=== PATIENT | male | born 2000 | race Caucasian/White ===

== ENCOUNTER 2024-07-07 19:09 | Emergency (ER) | payer BC, SELFPAY ==
[2024-07-07 19:12] VITALS: BP 143/85; PULSE 107; RESP 17; TEMP 36.8; O2SAT 100
--- NOTE | 2024-07-07 19:42 | ED.GENADULT ---
HPI - General Adult General Chief complaint: Upper Respiratory Infection Stated complaint: cold symptoms Time Seen by Provider: 07/07/24 19:16 History of Present Illness HPI narrative: 23-year-old male with a history of ADHD presenting to the emergency room with a constellation of complaints including subjective low-grade fevers, headaches, nauseousness, abdominal cramping and diarrhea for last 2 weeks. Patient states the symptoms are intermittent in nature and sometimes get debilitating where he has to use the restroom multiple times throughout the day. No history of inflammatory bowel disease or IBS. No family history that he is aware of. He otherwise has been in his normal state of health but these last 10 days have been symptomatic for him. Endorses liquidy diarrhea with mucus but no blood or melena. Endorses nauseousness without vomiting. Headache goes away after use the restroom. Endorses abdominal cramping in his bilateral lower quadrants. No urinary complaints, testicular complaints swelling. No trauma. No new medications. Related Data Allergies Allergy/AdvReac Type Severity Reaction Status Date / Time No Known Allergies Allergy Verified 07/07/24 19:14 Review of Systems Review of Systems: As reviewed above Exam Narrative: GENERAL: [Well-appearing, well-nourished, and in no acute distress.] HEAD: [Normocephalic, atraumatic.] EYES: [PERRLA and EOMI.] ENT: Nares clear, no rhinorrhea or epistaxis. Mucous membranes moist. NECK: Supple. CHEST: [Clear to auscultation. No respiratory distress.] HEART: [Regular rate and rhythm]. No murmur heard. [Normal peripheral pulses.] ABDOMEN: [Soft, nondistended], [nontender], [No rigidity or guarding] EXTREMITIES: Normal range of motion. [No edema.] SKIN: Warm, dry, no rash. NEURO: [No focal deficits]. Alert and oriented [x3.] PSYCH: [Normal mood and affect.] Course Vital Signs Vital signs: Vital Signs Temperature 36.8 C 07/07/24 19:12 Pulse Rate 107 H 07/07/24 19:12 Respiratory Rate 17 07/07/24 19:12 Blood Pressure 143/85 H 07/07/24 19:12 Pulse Oximetry 100 07/07/24 19:12 Oxygen Delivery Room Air 07/07/24 19:12 Temperature 36.8 C 07/07/24 19:12 Pulse Rate 107 H 07/07/24 19:12 Respiratory Rate 17 07/07/24 19:12 Blood Pressure 143/85 H 07/07/24 19:12 Pulse Oximetry 100 07/07/24 19:12 Oxygen Delivery Room Air 07/07/24 19:12 Medical Decision Making MDM Narrative Medical decision making narrative: 23-year-old otherwise well-appearing male presenting to the emergency room with a constellation of complaints that usually focuses on diarrhea with mucus production, nauseous without vomiting and some lower abdominal cramping. Symptoms were going on for last 10 days but states that he has had some symptoms like this previously that was self-limited and resolved. Endorses low-grade fevers, myalgias. No sick contacts but states that he does not seek medical attention regularly. He has a benign abdominal examination, benign appearance and otherwise appears well not any acute distress. Differential remains broad and they would likely nonspecific gastroenteritis versus viral illness. COVID fluid RSV swabs were obtained. Laboratory studies were obtained including CBC CMP lipase and magnesium. Patient appears clinically well hydrated, not in any acute distress and has no pain on my initial assessment. Other differentials to consider include IBS, inflammatory bowel disease, less likely pathology such as a pancreatitis or appendicitis, cholelithiasis, cholecystitis. Workup reveals no leukocytosis or anemia. Electrolytes all within normal limits, normal renal and hepatic function panel. Normal glucose. Negative COVID fluid influenza swabs. At this time patient is stable for discharge with outpatient follow-up. Will refer him to Medicine for primary care provider establishment And further workup. Medical Records Medical records reviewed: Yes I reviewed the external patient's medical records. Vital Signs Vital Signs: Vital Signs Temperature 36.8 C 07/07/24 19:12 Pulse Rate 107 H 07/07/24 19:12 Respiratory Rate 17 07/07/24 19:12 Blood Pressure 143/85 H 07/07/24 19:12 Pulse Oximetry 100 07/07/24 19:12 Oxygen Delivery Room Air 07/07/24 19:12 Temperature 36.8 C 07/07/24 19:12 Pulse Rate 107 H 07/07/24 19:12 Respiratory Rate 17 07/07/24 19:12 Blood Pressure 143/85 H 07/07/24 19:12 Pulse Oximetry 100 07/07/24 19:12 Oxygen Delivery Room Air 07/07/24 19:12 Lab Data Lab results reviewed: Yes I reviewed the patient's lab results. 07/07/24 20:00 07/07/24 20:00 Labs: Lab Results 07/07/24 07/07/24 Range/Units 19:28 20:00 WBC 10.0 (4.5-10.0) K/mm3 RBC 5.03 (4.6-6.20) M/mm3 Hgb 15.4 (14.0-18.0) g/dL Hct 44.4 (42.0-52.0) % MCV 88.3 (80-100) fl MCH 30.6 (26-34) pg MCHC 34.7 (32-36) g/dl RDW 12.8 (11.5-14.5) % Plt Count 281 (150-375) k/mm3 MPV 9.9 (7.4-10.4) fl Immature Gran % (Auto) 0.3 (0-0.5) % Neut % (Auto) 58.1 (45.5-73.1) % Lymph % (Auto) 30.3 (18.3-44.2) % [place] % (Auto) 9.2 H (2.6-8.5) % Eos % (Auto) 1.7 (0-4.4) % Baso % (Auto) 0.4 (0.2-1.2) % Lymph # (Auto) 3.04 (0.9-3.2) K/mm3 [place] # (Auto) 0.9 H (0.1-0.6) K/mm3 Eos # (Auto) 0.2 (0-0.3) K/mm3 Baso # (Auto) 0.0 (0.0-0.1) K/mm3 Abs Immat Gran (auto) 0.03 (0.00-0.031) K/mm3 Absolute Neuts (auto) 5.8 (1.3-6.7) K/mm3 Absolute Nucleated RBC 0.000 (0.0-0.012) K/mm3 Nucleated RBC % 0.0 (0.0-0.2) % Sodium 139 (137-145) mmol/L Potassium 3.8 (3.4-5.0) mmol/L Chloride 103 (98-107) mmol/L Carbon Dioxide 26 (22-30) mmol/L Anion Gap 10 (4-12) mmol/L BUN 13 (9-20) mg/dL Creatinine 0.90 (0.7-1.3) mg/dL Estim Creat Clear Calc 103 ml/min Estimated GFR > 60 (59 - ) Glucose 107 (65-110) mg/dL Calcium 9.5 (8.4-10.2) mg/dL Magnesium 2.1 (1.6-2.3) mg/dL Total Bilirubin 0.3 (0.2-1.3) mg/dL AST 24 (17-59) U/L ALT 16 (6-50) U/L Alkaline Phosphatase 51 (38-126) U/L Total Protein 8.0 (6.3-8.2) g/dL Albumin 4.8 (3.5-5.1) g/dL Lipase 50 (23-300) U/L Influenza A (RT-PCR) Negative (Negative) Influenza B (RT-PCR) Negative (Negative) RSV (RT-PCR) Negative (Negative) SARS-CoV-2 RNA (RT-PCR) Negative (Negative) Discharge Plan Discharge Clinical Impression: Acute viral syndrome, IBS (irritable bowel syndrome) Patient Disposition: Home, Self-Care Condition: Stable Instructions: Antibiotic Form, Irritable Bowel Syndrome (DC), Acute Nausea and Vomiting (DC) Additional Instructions: your workup was largely unremarkable. Your symptoms do sound like they could be viral syndrome versus irritable bowel syndrome. We have prescribed you several medications to try to help with this. Follow-up with your primary care provider which we have sent you referral to establish care with. Prescriptions: New dicyclomine 20 mg tablet 20 mg PO TID PRN (Reason: abdominal pain) Qty: 20 0RF ondansetron 4 mg tablet,disintegrating 4 mg PO Q8H PRN (Reason: nausea and vomiting) Qty: 10 0RF Follow-up/Referrals: Ruthie Fuller DO [Physician] - 1 Week ( Establish care) PHYSICIAN,WATER QUALITY TESTER [Primary Care Provider] - Stand Alone Forms: Work/School Release IP Time of Disposition: 20:47
[2024-07-07 20:06] LABS: Basophils Percent Auto 0.4 % (0.2-1.2); Eosinophils Absolute Auto 0.2 K/mm3 (0-0.3); Eosinophils Percent Auto 1.7 % (0-4.4); Hematocrit 44.4 % (42.0-52.0); Hemoglobin 15.4 g/dL (14.0-18.0); Immature Granulocyte Absolute 0.03 K/mm3 (0.00-0.031); Immature Granulocyte Percent A 0.3 % (0-0.5); Lymphocytes Absolute Auto 3.04 K/mm3 (0.9-3.2); Lymphocytes Percent Auto 30.3 % (18.3-44.2); Mean Corpuscular HGB Conc 34.7 g/dl (32-36); Mean Corpuscular Hemoglobin 30.6 pg (26-34); Mean Corpuscular Volume 88.3 fl (80-100); Mean Platelet Volume 9.9 fl (7.4-10.4); Monocytes Absolute Auto 0.9 K/mm3 (0.1-0.6); Monocytes Percent Auto 9.2 % (2.6-8.5); Neutrophils Absolute Auto 5.8 K/mm3 (1.3-6.7); Neutrophils Percent Auto 58.1 % (45.5-73.1); Platelet Count Result 281 k/mm3 (150-375); Red Blood Count 5.03 M/mm3 (4.6-6.20); Red Cell Distribution Width 12.8 % (11.5-14.5)
[2024-07-07 20:11] LABS: Influenza A QL RT-PCR Negative (Negative); Influenza B QL RT-PCR Negative (Negative); RSV RNA, RT-PCR Negative (Negative); SARS-CoV-2 RNA PCR Negative (Negative)
[2024-07-07 20:17] LABS: Alanine Aminotransferase 16 U/L (6-50); Albumin Level 4.8 g/dL (3.5-5.1); Alkaline Phosphatase 51 U/L (38-126); Anion Gap 10 mmol/L (4-12); Aspartate Amino Transferase 24 U/L (17-59); Bilirubin,Total 0.3 mg/dL (0.2-1.3); Blood Urea Nitrogen 13 mg/dL (9-20); Calcium 9.5 mg/dL (8.4-10.2); Carbon Dioxide 26 mmol/L (22-30); Chloride 103 mmol/L (98-107); Estimated CRCL calculation 103 ml/min; Estimated Glomerular Filt Rate > 60; Glucose 107 mg/dL (65-110); Lipase 50 U/L (23-300); Magnesium 2.1 mg/dL (1.6-2.3); Potassium 3.8 mmol/L (3.4-5.0); Sodium 139 mmol/L (137-145)
[2024-07-07 21:18] VITALS: BP 123/77; PULSE 91; RESP 16; O2SAT 97
== END 2024-07-07 21:22 | disposition home or self-care (01) ==
PROVIDERS: Emergency Provider Student in an Organized Health Care Education/Training Program
DX: B34.9 Viral infection, unspecified (principal); K58.9 Irritable bowel syndrome, unspecified
CPT/HCPCS: 36415; 80053; 83690; 83735; 85025; 87637; 99283

== ENCOUNTER 2024-07-22 17:19 | Emergency (ER) | payer BC, SELFPAY ==
[2024-07-22 17:27] VITALS: BP 140/74; PULSE 101; RESP 18; TEMP 36.5; O2SAT 100
--- NOTE | 2024-07-22 17:32 | PC.NURSE ---
decided after triage he wanted to leave. He reported he did not want to have any testing done only wanted a work noted
== END 2024-07-22 17:51 | disposition left against medical advice (07) ==
LOC: ANHED 17:39
DX: R19.7 Diarrhea, unspecified (principal)
CPT/HCPCS: 99199

== ENCOUNTER 2024-08-20 13:00 | Emergency (ER) | payer BC, SELFPAY ==
--- NOTE | ~2024-08-20 | XR_ITS ---
EXAMINATION: XR chest 2V Exam Date/Time: 08/20/2024 18:12 NEWSPAPER ILLUSTRATOR HISTORY: cough, fever Comparison: None. RESULT: Lines, tubes, and devices: None. Lungs and pleura: Clear. Cardiomediastinal silhouette: Normal. Other: No acute osseous or upper abdominal finding. IMPRESSION: No acute cardiopulmonary process. Reviewed, dictated and finalized at location K. PAPER ILLUSTRATOR
[2024-08-20 13:07] VITALS: BP 142/90; PULSE 108; RESP 18; TEMP 36.7; O2SAT 99
[2024-08-20 14:28] LABS: Basophils Percent Auto 0.3 % (0.2-1.2); Eosinophils Percent Auto 0.3 % (0-4.4); Hematocrit 48.3 % (42.0-52.0); Hemoglobin 16.6 g/dL (14.0-18.0); Immature Granulocyte Percent A 0.3 % (0-0.5); Lymphocytes Percent Auto 24.8 % (18.3-44.2); Mean Corpuscular HGB Conc 34.4 g/dl (32-36); Mean Corpuscular Volume 87.3 fl (80-100); Mean Platelet Volume 9.8 fl (7.4-10.4); Monocytes Percent Auto 10.6 % (2.6-8.5); Neutrophils Percent Auto 63.7 % (45.5-73.1); Platelet Count Result 307 k/mm3 (150-375); Red Blood Count 5.53 M/mm3 (4.6-6.20); Red Cell Distribution Width 12.8 % (11.5-14.5); White Blood Count 13.1 K/mm3 (4.5-10.0)
[2024-08-20 14:29] LABS: Immature Granulocyte Absolute 0.04 K/mm3 (0.00-0.031); Lymphocytes Absolute Auto 3.24 K/mm3 (0.9-3.2); Monocytes Absolute Auto 1.4 K/mm3 (0.1-0.6); Neutrophils Absolute Auto 8.3 K/mm3 (1.3-6.7)
[2024-08-20 14:41] LABS: Alanine Aminotransferase 22 U/L (6-50); Albumin Level 5.3 g/dL (3.5-5.1); Alkaline Phosphatase 59 U/L (38-126); Anion Gap 10 mmol/L (4-12); Aspartate Amino Transferase 28 U/L (17-59); Bilirubin,Total 0.8 mg/dL (0.2-1.3); Blood Urea Nitrogen 17 mg/dL (9-20); Calcium 9.8 mg/dL (8.4-10.2); Carbon Dioxide 26 mmol/L (22-30); Chloride 103 mmol/L (98-107); Estimated CRCL calculation 102 ml/min; Estimated Glomerular Filt Rate > 60; Glucose 114 mg/dL (65-110); Lipase 43 U/L (23-300); Potassium 3.5 mmol/L (3.4-5.0); Sodium 139 mmol/L (137-145)
[2024-08-20 15:56] LABS: Influenza A QL RT-PCR Negative (Negative); Influenza B QL RT-PCR Negative (Negative); RSV RNA, RT-PCR Negative (Negative); SARS-CoV-2 RNA PCR Negative (Negative)
[2024-08-20 16:27] LABS: Add Urine Microscopic? YES; Appearance Urine Clear (Clear); Bacteria Urine None Seen /hpf; Bilirubin Urine Negative (Negative); Blood Urine Negative (Negative); Color Urine Dark Yellow (Yellow); Glucose Urine UA Negative (Negative); Ketones Urine 1+ mg/dL (Negative); Leukocyte Esterase Ur Trace LEU/UL (Negative); Nitrate Urine Negative (Negative); Protein Urine 1+ mg/dL (Negative); RBC Urine 0-2 /hpf (0-2); Specific Grav Ur 1.034 (1.001-1.035); Squamous Epithelial Cell Urine None Seen /hpf (Few); WBC Urine 0-5 /hpf (0-3); pH Urine 6.5 (5.0-9.0)
[2024-08-20 17:47] VITALS: BP 148/79; PULSE 98; RESP 18; O2SAT 100
--- NOTE | 2024-08-20 17:49 | PC.NURSE ---
pt requested his IV be pulled out due to it bothering him. pt was worked up and agitated. this RN pulled his IV out
--- NOTE | 2024-08-20 18:14 | ED_ITS ---
HPI - General Adult General Chief complaint: Unspecified Stated complaint: flu like s/s Time Seen by Provider: 08/20/24 17:12 Source: patient Mode of arrival: ambulatory Limitations: no limitations History of Present Illness HPI narrative: This is a 24-year-old male that presents to the emergency department for cold symptoms present since yesterday. Reports nausea, vomiting, fevers, cough. Reports he thought he has also dark streaks in his vomit was concerned it was blood. He is not take any blood thinners. Denies shortness of breath, abdominal pain, diarrhea. Related Data Allergies Allergy/AdvReac Type Severity Reaction Status Date / Time No Known Allergies Allergy Verified 07/22/24 17:21 Review of Systems Review of Systems: CONSTITUTIONAL: Reports fever ENT: Reports congestion CARDIOVASCULAR: Denies chest pain RESPIRATORY: Reports cough. Denies dyspnea. GASTROINTESTINAL: Denies abdominal pain or diarrhea. Reports nausea, vomiting All systems reviewed & are unremarkable except as noted in HPI and below PMFSH Past Medical History Medical History (Updated 08/20/24 @ 18:57 by Tricia Benítez PA-C) History of ADHD History of IBS Social History Social History (Updated 08/20/24 @ 18:16 by Tricia Benítez PA-C) Smoking status: Never smoker Exam Narrative: GENERAL: Well-appearing, well-nourished, and in no acute distress. HEAD: Normocephalic, atraumatic. EYES: EOMI. ENT: Nares clear, no rhinorrhea or epistaxis. Mucous membranes moist. Oropharynx without tonsillar hypertrophy exudate or other lesions. Bilateral TMs pearly moore non-bulging NECK: Supple. No adenopathy or masses. CHEST: Clear to auscultation. No respiratory distress. No wheezes rales or rhonchi HEART: Regular rate and rhythm. No murmur heard. Normal peripheral pulses. ABDOMEN: Soft, nondistended EXTREMITIES: Normal range of motion. No edema. SKIN: Warm, dry, no rash. NEURO: No focal deficits. Alert and oriented x3. PSYCH: Normal mood and affect Course Course Emergency Course: Patient updated on his workup and agrees with plan of care Vital Signs Vital signs: Vital Signs Temperature 98.1 F 08/20/24 13:07 Pulse Rate 108 H 08/20/24 13:07 Respiratory Rate 18 08/20/24 13:07 Blood Pressure 142/90 H 08/20/24 13:07 Pulse Oximetry 99 08/20/24 13:07 Oxygen Delivery Room Air 08/20/24 13:07 Temperature 98.1 F 08/20/24 13:07 Pulse Rate 98 08/20/24 17:47 Respiratory Rate 18 08/20/24 17:47 Blood Pressure 148/79 H 08/20/24 17:47 Pulse Oximetry 100 08/20/24 17:47 Oxygen Delivery Room Air 08/20/24 13:07 Medical Decision Making MDM Narrative Medical decision making narrative: Patient presents to the emergency department for symptoms ongoing since yesterday. Reporting fevers, cough, nausea,. He is afebrile in the ER nontoxic appearing. Mildly tachycardic upon arrival, this normalized without intervention. CBC with leukocytosis to 13.1. Metabolic panel and lipase without concerning findings. Urine without evidence of infection. Influenza, RSV and COVID screens are negative. Chest x-ray without acute cardiopulmonary abnormality. Patient has had no episodes of vomiting while in the ER. Updated on his workup and agrees with plan of care. He is to follow up with primary provider. He was given warnings to return to the ER Differential Diagnosis Differential Diagnosis: Gastroenteritis, upper respiratory infection, COVID, influenza, gastritis, Karoline-Harrison tear Vital Signs Vital Signs: Vital Signs Temperature 98.1 F 08/20/24 13:07 Pulse Rate 108 H 08/20/24 13:07 Respiratory Rate 18 08/20/24 13:07 Blood Pressure 142/90 H 08/20/24 13:07 Pulse Oximetry 99 08/20/24 13:07 Oxygen Delivery Room Air 08/20/24 13:07 Temperature 98.1 F 08/20/24 13:07 Pulse Rate 98 08/20/24 17:47 Respiratory Rate 18 08/20/24 17:47 Blood Pressure 148/79 H 08/20/24 17:47 Pulse Oximetry 100 08/20/24 17:47 Oxygen Delivery Room Air 08/20/24 13:07 Lab Data Lab results reviewed: Yes I reviewed the patient's lab results. 08/20/24 14:21 08/20/24 14:21 Labs: Lab Results 08/20/24 08/20/24 Range/Units 14:21 16:07 WBC 13.1 H (4.5-10.0) K/mm3 RBC 5.53 (4.6-6.20) M/mm3 Hgb 16.6 (14.0-18.0) g/dL Hct 48.3 (42.0-52.0) % MCV 87.3 (80-100) fl MCH 30.0 (26-34) pg MCHC 34.4 (32-36) g/dl RDW 12.8 (11.5-14.5) % Plt Count 307 (150-375) k/mm3 MPV 9.8 (7.4-10.4) fl Immature Gran % (Auto) 0.3 (0-0.5) % Neut % (Auto) 63.7 (45.5-73.1) % Lymph % (Auto) 24.8 (18.3-44.2) % [place] % (Auto) 10.6 H (2.6-8.5) % Eos % (Auto) 0.3 (0-4.4) % Baso % (Auto) 0.3 (0.2-1.2) % Lymph # (Auto) 3.24 H (0.9-3.2) K/mm3 [place] # (Auto) 1.4 H (0.1-0.6) K/mm3 Eos # (Auto) 0.0 (0-0.3) K/mm3 Baso # (Auto) 0.0 (0.0-0.1) K/mm3 Abs Immat Gran (auto) 0.04 H (0.00-0.031) K/mm3 Absolute Neuts (auto) 8.3 H (1.3-6.7) K/mm3 Absolute Nucleated RBC 0.000 (0.0-0.012) K/mm3 Nucleated RBC % 0.0 (0.0-0.2) % Sodium 139 (137-145) mmol/L Potassium 3.5 (3.4-5.0) mmol/L Chloride 103 (98-107) mmol/L Carbon Dioxide 26 (22-30) mmol/L Anion Gap 10 (4-12) mmol/L BUN 17 (9-20) mg/dL Creatinine 0.90 (0.7-1.3) mg/dL Estim Creat Clear Calc 102 ml/min Estimated GFR > 60 (59 - ) Glucose 114 H (65-110) mg/dL Calcium 9.8 (8.4-10.2) mg/dL Total Bilirubin 0.8 (0.2-1.3) mg/dL AST 28 (17-59) U/L ALT 22 (6-50) U/L Alkaline Phosphatase 59 (38-126) U/L Total Protein 9.0 H (6.3-8.2) g/dL Albumin 5.3 H (3.5-5.1) g/dL Lipase 43 (23-300) U/L Urine Color Dark yellow (Yellow) Urine Appearance Clear (Clear) Urine pH 6.5 (5.0-9.0) Ur Specific [place] 1.034 (1.001-1.035) Urine Protein 1+ H (Negative) mg/dL Urine Glucose (UA) Negative (Negative) mg/dL Urine Ketones 1+ H (Negative) mg/dL Ur Blood (Man) Negative (Negative) Urine Nitrate Negative (Negative) Urine Bilirubin Negative (Negative) Urine Urobilinogen 1.0 (<2.0) mg/dL Leukocyte Esterase Rfl Trace H (Negative) MARY/UL Urine RBC 0-2 (0-2) /hpf Urine WBC 0-5 (0-3) /hpf Ur Squamous Epith Cells None seen (Few) /hpf Urine Bacteria None seen /hpf Urine Casts 3-5 Influenza A (RT-PCR) Negative (Negative) Influenza B (RT-PCR) Negative (Negative) RSV (RT-PCR) Negative (Negative) SARS-CoV-2 RNA (RT-PCR) Negative (Negative) Imaging Data Radiologist's impression: ITS Impressions Chest X-Ray 08/20/24 18:24 IMPRESSION: No acute cardiopulmonary process. Critical Care Time Critical Care Time Critical Care Time: No Discharge Plan Discharge Clinical Impression: Acute viral syndrome Patient Disposition: Home, Self-Care Condition: Stable Instructions: Viral Syndrome (ED) Additional Instructions: Return to the emergency department if you experience fever, chest pain, shortness of breath, abdominal pain with nausea and vomiting, weakness, numbness, or any other symptoms that are concerning to you. Remain well hydrated. Small, frequent meals. Walker diet. Take Protonix daily. Ondansetron as needed for nausea Follow up with primary care doctor Prescriptions: New ondansetron 4 mg tablet,disintegrating 4 mg PO Q8H PRN (Reason: nausea and vomiting) Qty: 14 0RF pantoprazole [Protonix] 20 mg tablet,delayed release (DR/EC) 20 mg PO HS 28 Days Qty: 28 0RF No Action dicyclomine 20 mg tablet 20 mg PO TID PRN (Reason: abdominal pain) Qty: 20 0RF ondansetron 4 mg tablet,disintegrating 4 mg PO Q8H PRN (Reason: nausea and vomiting) Qty: 10 0RF Follow-up/Referrals: Sandeep Salcedo MD [Physician] - UNKNOWN,DOCTOR [Primary Care Provider] - Stand Alone Forms: Work/School Release IP
== END 2024-08-20 19:05 | disposition home or self-care (01) ==
PROVIDERS: Emergency Medicine; Emergency Provider Physician Assistant
DX: B34.9 Viral infection, unspecified (principal); Z20.822 Contact with and (suspected) exposure to COVID-19
CPT/HCPCS: 36415; 71046; 80053; 81001; 83690; 85025; 87637; 99283